=== PATIENT | female | born 2000 | race American Indian/Alaskan Native ===

== ENCOUNTER 2021-10-16 22:06 | Emergency (ER) | payer SELFPAY ==
[2021-10-17] MEDS ORDERED: ONDANSETRON 4 MG/2 ML INJ IV ONE (00:24)
[2021-10-17] MEDS ORDERED: MORPHINE 4 MG/1 ML INJ IV ONE (00:24)
[2021-10-17] MEDS ORDERED: SODIUM CHLORIDE 0.9% 1000 ML 1,000 ML IV ONE (00:24)
[2021-10-17 00:56] LABS: Basophils % (Auto) 0.3 % (0.0-1.8); Eosinophils % (Auto) 0.2 % (0.0-4.3); Hematocrit 42.3 % (30.3-42.9); Hemoglobin 13.7 gm/dl (10.1-14.3); Lymphocytes # (Auto) 2.3 K/mm3 (1.2-5.4); Lymphocytes % (Auto) 34.1 % (13.4-35.0); Mean Corpuscular HGB Conc 32 % (30-34); Mean Corpuscular Volume 87 fl (79-97); Monocytes # (Auto) 0.5 K/mm3 (0.0-0.8); Monocytes % (Auto) 7.3 % (0.0-7.3); Platelet Count 276 K/mm3 (140-440); Red Blood Count 4.87 M/mm3 (3.65-5.03); Red Cell Distribution Width 14.2 % (13.2-15.2)
[2021-10-17 01:16] LABS: Alanine Aminotransferase 13 units/L (7-56); Albumin 4.6 g/dL (3.9-5); BUN/Creatinine Ratio 11; Blood Urea Nitrogen 10 mg/dL (7-17); Calcium 9.5 mg/dL (8.4-10.2); Hemolysis Index 9
[2021-10-17 02:19] LABS: Bacteria,Urine 1+ /HPF (Negative); Bilirubin,Urine NEG (Negative); Blood,Urine LG (Negative); Color,Urine Yellow (Yellow); Mucus,Urine FEW /HPF; Protein,Urine <15 mg/dL mg/dL (Negative); Urobilinogen,Urine < 2.0 mg/dL (<2.0)
[2021-10-17] MEDS ORDERED: cefTRIAXone/NS 1 GM/50 ML 1 GM/50 ML BAG IV ONE (02:42)
--- NOTE | 2021-10-17 02:50 | Cat Scan Report ---
CT ABDOMEN AND PELVIS WITH IV CONTRAST INDICATION: abdominal pain: RLQ. Right lower quadrant pain COMPARISON: None available. TECHNIQUE: Axial CT images were obtained through the abdomen and pelvis after 100 mL Omnipaque [address] scans at this location are performed using CT dose reduction for ALARA by means of automated e xposure control. FINDINGS -- ABDOMEN: Lung Bases: No acute abnormality. Liver: Normal. Gallbladder: Normal. Bile Ducts: Normal. Pancreas: Normal. Spleen: Normal. Adrenals: Normal. Right Kidney and Proximal Ureter: Slight right hydronephrosis. There is a partially obstructive 3 mm calculus at the right ureterovesical junction. Tiny 1 mm calculus located within the upper pole of th e right kidney.. Left Kidney and Proximal Ureter: Several tiny 1 mm calculi within the lower pole the left kidney.. Stomach and Bowel: Normal. Lymph Nodes: No significant adenopathy. Aorta: No significant abnormality. IVC: Normal. Additional Findings: Small fat-containing periumbilical hernia. FINDINGS -- PELVIS: Urinary Bladder and Distal Ureters: Normal. Reproductive Organs: No acute abnormality. Appendix: Normal. Bowel: No acute abnormality. Free Fluid: None. Lymph Nodes: No significant adenopathy. Additional Findings: None. Skeletal System: No acute abnormality. IMPRESSION: 1. Mildly obstructive 3 mm calculus at the right ureterovesical junction, as above. Signer Name: Fam Pete MD Signed: 10/17/2021 2:45 AM Workstation Name: [id number]
[2021-10-17] MEDS ORDERED: TAMSULOSIN 0.4 MG CAP PO ONE (02:53)
[2021-10-17] MEDS ORDERED: KETOROLAC 30 MG/1 ML INJ IV ONE (02:53)
--- NOTE | 2021-10-17 03:49 | Emergency Department Report ---
<WILDTAMERA - Last Filed: 10/17/21 03:53> ED Abdominal Pain HPI - General Chief Complaint: Abdominal Pain Stated Complaint: PAIN IN RT SIDE/BACK & FREQUENT URINATION Source: patient Mode of arrival: Ambulatory Limitations: No Limitations - History of Present Illness MD Complaint: abdominal pain, flank pain (Right flank pain radiating to the right lower quadrant area), other (Diagnosed with UTI and is on antibiotics) -: Sudden, week(s) (2) Location: RLQ, R flank Radiation: RLQ, suprapubic, R flank Migration to: no migration Severity scale (0 -10): 7 Quality: cramping, aching, sharp Consistency: constant Improves With: nothing Worsens With: movement Context: other (Currently on antibiotics for UTI) Associated Symptoms: denies other symptoms, nausea, vomiting, anorexia. denies: diarrhea, fever, chills, dysuria, hematemesis, hematochezia, melena, hematuria, syncope, other Treatments Prior to Arrival: prescription analgesics (Bactrim DS for acute urinary tract infection) - Related Data LMP Date: 10/10/21 Previous Rx's Medication Instructions Recorded Last Taken Type Ketorolac [Toradol] 10 mg PO Q8H PRN #20 tab 10/17/21 Unknown Rx Ondansetron [Zofran Odt] 4 mg PO Q6HR PRN #20 tab.rapdis 10/17/21 Unknown Rx Tamsulosin [Flomax] 0.4 mg PO QDAY #14 cap 10/17/21 Unknown Rx traMADoL [Ultram] 50 mg PO Q6HR PRN #12 tablet 10/17/21 Unknown Rx Allergies Allergy/AdvReac Type Severity Reaction Status Date / Time No Known Allergies Allergy Verified 10/16/21 23:37 ED Review of Systems Constitutional: denies: chills, fever Eyes: denies: eye pain, eye discharge, vision change ENT: denies: ear pain, throat pain Respiratory: denies: cough, shortness of breath, wheezing Cardiovascular: denies: chest pain, palpitations Endocrine: no symptoms reported Gastrointestinal: abdominal pain (Right flank pain and right lower quadrant pain), nausea, vomiting. denies: diarrhea Genitourinary: frequency. denies: urgency, dysuria, discharge, abnormal menses, dyspareunia Musculoskeletal: denies: back pain, joint swelling, arthralgia Skin: denies: rash, lesions Neurological: denies: headache, weakness, paresthesias Psychiatric: denies: anxiety, depression Hematological/Lymphatic: denies: easy bleeding, easy bruising ED Past Medical Hx - Past Medical History Previous Medical History?: No - Surgical History Past Surgical History?: No - Medications Home Medications: Home Medications Medication Instructions Recorded Confirmed Last Taken Type Ketorolac [Toradol] 10 mg PO Q8H PRN #20 tab 10/17/21 Unknown Rx Ondansetron [Zofran Odt] 4 mg PO Q6HR PRN #20 tab.rapdis 10/17/21 Unknown Rx Tamsulosin [Flomax] 0.4 mg PO QDAY #14 cap 10/17/21 Unknown Rx traMADoL [Ultram] 50 mg PO Q6HR PRN #12 tablet 10/17/21 Unknown Rx ED Physical Exam - General Limitations: No Limitations General appearance: alert, in no apparent distress - Head Head exam: Present: atraumatic, normocephalic, normal inspection - Eye Eye exam: Present: normal appearance, PERRL, EOMI Pupils: Present: normal accommodation - ENT ENT exam: Present: normal exam, normal orophraynx, mucous membranes moist, TM's normal bilaterally, normal external ear exam - Neck Neck exam: Present: normal inspection, full ROM. Absent: tenderness - Respiratory Respiratory exam: Present: normal lung sounds bilaterally. Absent: respiratory distress, wheezes, rales, rhonchi, stridor, chest wall tenderness, accessory muscle use, decreased breath sounds, prolonged expiratory - Cardiovascular Cardiovascular Exam: Present: regular rate, normal rhythm, normal heart sounds. Absent: systolic murmur, diastolic murmur, rubs, gallop - GI/Abdominal GI/Abdominal exam: Present: soft, tenderness (Palpable right flank and right lower quadrant tenderness), normal bowel sounds. Absent: guarding, rebound, rigid, hyperactive bowel sounds, hypoactive bowel sounds, organomegaly - Extremities Exam Extremities exam: Present: normal inspection, full ROM, normal capillary refill - Back Exam Back exam: Present: normal inspection, full ROM. Absent: tenderness, CVA tenderness (R), CVA tenderness (L), muscle spasm, paraspinal tenderness, vertebral tenderness - Neurological Exam Neurological exam: Present: alert, oriented X3, CN II-XII intact, normal gait, reflexes normal - Psychiatric Psychiatric exam: Present: normal affect, normal mood - Skin Skin exam: Present: warm, dry, intact, normal color. Absent: rash ED Medical Decision Making - Lab Data Result diagrams: 10/17/21 00:38 10/17/21 00:38 - Radiology Data Radiology results: report reviewed, image reviewed [facility] [address] [place] [address] Cat Scan Report Signed Patient: OLEG HAYS MR#: [id number] : 2000 Acct:[id number] Age/Sex: 21 / F ADM Date: 10/16/21 Loc: ED Attending Dr: Ordering Physician: SID MILLS Date of Service: 10/17/21 Procedure(s): CT abdomen pelvis w con Accession Number(s): [id number] cc: SID MILLS CT ABDOMEN AND PELVIS WITH IV CONTRAST INDICATION: abdominal pain: RLQ. Right lower quadrant pain COMPARISON: None available. TECHNIQUE: Axial CT images were obtained through the abdomen and pelvis after 100 mL Omnipaque [address] scans at this location are performed using CT dose reduction for ALARA by means of automated exposure control. FINDINGS -- ABDOMEN: Lung Bases: No acute abnormality. Liver: Normal. Gallbladder: Normal. Bile Ducts: Normal. Pancreas: Normal. Spleen: Normal. Adrenals: Normal. Right Kidney and Proximal Ureter: Slight right hydronephrosis. There is a partially obstructive 3 mm calculus at the right ureterovesical junction. Tiny 1 mm calculus located within the upper pole of the right kidney.. Left Kidney and Proximal Ureter: Several tiny 1 mm calculi within the lower pole the left kidney.. Stomach and Bowel: Normal. Lymph Nodes: No significant adenopathy. Aorta: No significant abnormality. IVC: Normal. Additional Findings: Small fat-containing periumbilical hernia. FINDINGS -- PELVIS: Urinary Bladder and Distal Ureters: Normal. Reproductive Organs: No acute abnormality. Appendix: Normal. Bowel: No acute abnormality. Free Fluid: None. Lymph Nodes: No significant adenopathy. Additional Findings: None. Skeletal System: No acute abnormality. IMPRESSION: 1. Mildly obstructive 3 mm calculus at the right ureterovesical junction, as above. Signer Name: Fam Pete MD Signed: 10/17/2021 2:45 AM Workstation Name: [id number] Transcribed By: Dictated By: Fam Pete MD Electronically Authenticated By: Fam Pete MD Signed Date/Time: 10/17/21244 DD/ 2 TD/TT: Print - Differential Diagnosis Appendicitis; pyelonephritis; kidney stone; ectopic preg; ovarian cyst ED Disposition Clinical Impression: Acute abdominal pain in right flank, Nausea and vomiting in adult patient, Acute urinary tract infection, Calculus of right kidney Disposition: 01 HOME / SELF CARE / HOMELESS Is pt being admited?: No Does the pt Need Aspirin: No Condition: Stable Instructions: Kidney Stones, [id number], Nausea and Vomiting, Adult, [id number], Renal Colic, Urinary Tract Infection, Adult, [id number], Flank Pain, Adult, [id number], Abdominal Pain (ED) Additional Instructions: All lab test results were reviewed and are all nonactionable except for urinary tract infection in urinalysis. The abdomen pelvis CT scan with contrast showed mildly obstructive 3 mm calculus at the right ureterovesical junction, this is likely to pass. Therefore continue taking the previously prescribed antibiotics for UTI, take pain medication as needed, take medication for nausea and vomiting and the Flomax. Follow-up with the urologist Dr. Curtis in the next 3 to 5 days for reevaluation. Contact Dr. Curtis's office first thing in the morning on Sunday, October 17, 2021 to schedule a follow-up appointment. Return to the ED immediately if symptoms get worse. Prescriptions: Tamsulosin [Flomax] 0.4 mg PO QDAY #14 cap Ketorolac [Toradol] 10 mg PO Q8H PRN #20 tab PRN Reason: Pain traMADoL [Ultram] 50 mg PO Q6HR PRN #12 tablet PRN Reason: Pain Ondansetron [Zofran Odt] 4 mg PO Q6HR PRN #20 tab.rapdis PRN Reason: Nausea Referrals: NATALIE CURTIS MD [Staff Physician] - 3-5 Days [facility] [Provider Group] - 7-10 days Forms: Work/School Release Form(ED) Time of Disposition: 03:51 Print Language: LIBYAN <OSEMOTA,LEVY U - Last Filed: 10/19/21 21:21> ED Review of Systems ROS: Stated complaint: PAIN IN RT SIDE/BACK & FREQUENT URINATION Other details as noted in HPI ED Course Vital Signs 10/16/21 10/17/21 10/17/21 23:31 03:49 04:27 Temperature 99.2 F Pulse Rate 88 84 Respiratory 14 16 14 Rate Blood Pressure 130/71 134/73 [Right] O2 Sat by Pulse 97 100 Oximetry ED Medical Decision Making - Lab Data Result diagrams: 10/17/21 00:38 10/17/21 00:38 - Medical Decision Making I have reviewed the PA/INDIAN [employer]AVER's note and plan of care. I was available for consultation as needed at all times during the patient's visit in the emergency department but was not consulted on this case. I agree with the plan to return to the ER if the patient's symptoms worsen or do not improve. Critical care attestation.: If time is entered above; I have spent that time in minutes in the direct care of this critically ill patient, excluding procedure time.
[2021-10-17 04:38] VITALS: BP 134/73
== END 2021-10-17 04:39 | disposition home or self-care (01) ==
LOC: ED 22:06
DX: N39.0 Urinary tract infection, site not specified (principal); R10.31 Right lower quadrant pain; R11.2 Nausea with vomiting, unspecified; N20.0 Calculus of kidney
CPT/HCPCS: 36415; 74177; 80053; 81001; 83690; 84703; 85025; 87086; 96361; 96365; 96375; 99284; J0696; J1885; J2270; J2405; J7030; Q9967; Q0162